=== PATIENT | male | born 1940 | race Caucasian/White ===

== ENCOUNTER → 2019-12-13 | Outpatient (CLI) | payer MEDICARE ==
--- NOTE | 2019-12-13 14:20 | RAD ---
3 views the bilateral knees without comparison for knee pain. FINDINGS: There is no fracture or acute osseous abnormality of either knee. There is mild bilaterally symmetrical bicompartmental osteoarthritis involving the medial and patellofemoral joint compartments. There may be a suprapatellar joint effusion on the left. There is moderate diffuse atherosclerosis involving the distal SFA, popliteal, and proximal runoff vessels bilaterally. IMPRESSION: 1. No fracture or acute osseous abnormality. 2. Mild bicompartmental osteoarthritis bilaterally. 3. Atherosclerosis. 4. Possible right suprapatellar joint effusion. Electronically signed by: Simone Anderson MD (12/13/2019 2:17 PM) [id number]
== END | disposition home or self-care (01) ==
LOC: DXRAD 13:35
PROVIDERS: ATTEND Orthopaedic Surgery
DX: M17.0 Bilateral primary osteoarthritis of knee (principal); M25.461 Effusion, right knee
CPT/HCPCS: 73560; 73565